=== PATIENT | female | born 1945 | race Caucasian/White ===

== ENCOUNTER 2023-08-22 10:26 | Emergency (ER) | payer MEDICARE, OTHER ==
[2023-08-22 10:41] VITALS: BP 163/80
[2023-08-22] MEDS: Proparacaine 0.5% Ophth Soln 15 ML Bottle EYELF ONE (11:12)
[2023-08-22] MEDS: Fluorescein 1 MG Ophth Strip ONE (11:44)
[2023-08-22] MEDS: Fluorescein 1 MG Ophth Strip EYELF ONE (11:44)
[2023-08-22 11:55] VITALS: PULSE 82
== END 2023-08-22 11:50 | disposition home or self-care (01) ==
LOC: JD.ED 10:26
DX: S05.02XD Injury of conjunctiva and corneal abrasion without foreign body, left eye, subsequent encounter (principal); Z79.899 Other long term (current) drug therapy; W22.8XXD Striking against or struck by other objects, subsequent encounter
CPT/HCPCS: 99283; J3490